=== PATIENT | female | born 1975 | race African-American/Black ===

== ENCOUNTER 2017-02-16 08:18 | Inpatient (IN) | payer BC ==
[~2017-02-16] VITALS: Ht 165.1 cm; Wt 103.9 kg
--- NOTE | ~2017-02-16 | EKG ---
[address] [place] [address] ELECTROCARDIOGRAM REPORT Name: JESUS OWENSQUITA HUDSON Room [facility]: [facility]..#: [id number] Admission: Attend Phys: Discharge: Date of : 79 Report #: [id number] THIS REPORT FOR: //name// [facility] ED Test Date: 2017-02-16 Test Time: 08:34:39 Pat Name: YVONNE OWENS Department: Room: Gender: F Hospital Cook: TOMMIE : 1975 Requested By: Coleman Quiroz Order Number: [id number] MD: John Zarate Measurements Intervals [place] Rate: 77 P: -9 LA: 170 QRS: -2 QRSD: 87 T: -9 QT: 357 QTc: 404 Interpretive Statements Sinus rhythm Borderline abnrm T, anterolateral leads Baseline wander in lead(s) II,III,aVF Electronically Signed On 02-16-2017 9:04:03 CDT by John Zarate [email or web address] <ELECTRONICALLY SIGNED> By: John Zarate MD 02/16/1704 0834 08 John Zarate MD /ANTHONY
--- NOTE | ~2017-02-16 | HC ---
[facility] [place] [address] CONSULTATION Name: YVONNE OWENS HUDSON Room #: 309-P [facility] IN M.R.#: [id number] Admission: 02/16/17 Attend Phys: Donal Saucedo DO Discharge: 02/19/17 Date of : 79 Report #: [id number] THIS REPORT FOR: //name// CC: Dorina Saucedo DATE OF SERVICE: 02/16/2017 HISTORY OF PRESENT ILLNESS: This is a 41-year-old female patient who was evaluated by me for paresthesias on the left upper and left lower extremity. She woke up with it on Thursday. She thought it was because she slept wrongly, but it never went away and she came to emergency room she was admitted. Paresthesias are not very severe. They came spontaneously. REVIEW OF SYSTEMS: Indicate that this patient is otherwise healthy. She does have a history of migraine headache. She gets some visual disturbances along with it. Otherwise, she is healthy. She had a tubal ligation in the past. Fourteen-point review of systems was otherwise unremarkable. PAST MEDICAL HISTORY: Negative for any symptoms suggestive of MS. FAMILY HISTORY: Negative for MS. SOCIAL HISTORY: She drinks alcohol occasionally and she does not smoke. PHYSICAL EXAMINATION: The patient's examinations indicate she is alert and responsive. Her speech, concentration, fund of knowledge and memory is at her baseline. Cranial nerve examination 212 was unremarkable. She does appear to have somewhat asymmetrical reflexes with somewhat higher on the left side, there may be slightly left-sided weakness. There is no cerebellar sign, meningeal sign or papilledema. She is a well-developed individual whose hearing and visual looks adequate. She has no thyroid mass. There is no carotid bruit. Cardiac examination shows unremarkable heart sounds and there is no murmur. There are no breath sounds, which are abnormal. Her pulses are palpable. Her blood pressure is 140/92, respirations 18, pulse is 72, and temperature is 98.6. LABORATORY DATA: Indicated a white count of 8.2. CT scan of the head does show some white matter changes. IMPRESSION: The main thing we need to exclude in this patient is the possibility of multiple sclerosis. I discussed the MRI with her and I discussed the plan with her. I discussed MRI with and without contrast or without contrast. She understands the long-term and short-term side effect of MRI with contrast. Her test was negative. She understands occasional, but irreversible dermatological side effect. She wants to proceed with it. More than 50 minutes of time was spent taking care of this patient and majority of [address] [address] CONSULTATION Name: YVONNE OWENS HUDSON Room #: 309-P [facility] IN M.R.#: [id number] Admission: 02/16/17 Attend Phys: Donal Saucedo DO Discharge: 02/19/17 Date of : 79 Report #: [id number] that time was spent counseling the patient and coordinating her care. We will look at the MRI when it is done and spinal tap. Thank you very much. <ELECTRONICALLY SIGNED> By: Rambo Teague MD 02/21/17 1226 1835 1222 Rambo Teague MD /nt
--- NOTE | ~2017-02-16 | 2DMMODE ---
[facility] [address] [employer] [address] 2 D/M-MODE ECHOCARDIOGRAM Name: YVONNE OWENS HUDSON Room #: 309-P ADM IN M.R.#: [id number] Admission: 02/16/17 Attend Phys: Donal Saucedo, Discharge: Date of : 79 Date of Service: 02/19/17 1238 Report #: [id number] THIS REPORT FOR: //name// APPROVED REPORT Study performed: 02/19/2017 11:41:16 EXAM: Comprehensive 2D, Doppler, and color-flow Echocardiogram Patient Location: Echo lab Room #: 309 Blood Pressure: 146/89 mmHg Other Information Study Quality: Good Indications Hypertension/HDD Echo Enhancing Agent Indication: Rule out Shunt Agent/Amount Used: Agitated Saline 6 cc 2D Dimensions RVDd: 23.10 mm LVEF(%): 71.11 (>50%) IVSd: 14.18 (7-11mm) LVOT Diam: 20.41 (18-24mm) LVDd: 40.00 mm PWd: 13.64 (7-11mm) Ascending Ao: 32.06 (22-36mm) LVDs: 24.03 (25-40mm) Aortic Root: 26.40 mm IVC: 13.00 mm Ocampo's LVEF: 71.11 % Volumes Left Atrial Volume (Systole) Single Plane 4CH: 59.62 mL Single Plane 2CH: 43.57 mL LA ESV Index: 25.00 mL/m2 Aortic Valve AoV Peak Jonny.: 2.00 m/s AO Peak Gr.: 15.98 mmHg LVOT Max P.53 mmHg LVOT Max V: 1.54 m/s LARRY Vmax: 2.53 cm2 [facility] [address] [place] [address] 2 D/M-MODE ECHOCARDIOGRAM Name: ROM[facility]VONNE [facility] Room #: 309[facility] IN .R.#: [id number] Admission: 02/16/17 Attend Phys: Donal Saucedo, Discharge: Date of : 79 Date of Service: 02/19/17 1238 Report #: [id number] Mitral Valve E/A Ratio: 1.2 MV Decel. Time: 182.75 ms MV E Max Jonny.: 0.97 m/s MV A Jonny.: 0.83 m/s MV PHT: 53.00 ms IVRT: 62.28 ms Pulmonary Valve PV Peak Jonny.: 1.16 m/s PV Peak Gr.: 5.41 mmHg Pulmonary Vein P Vein S: 0.68 m/s P Vein A: 0.09 m/s P Vein D: 0.51 m/s P Vein A Dur.: 62.3 msec P Vein S/D Ratio: 1.33 Tricuspid Valve RAP Estimate: 5.00 mmHg Left Ventricle The left ventricle is normal size. There is normal LV segmental wall motion. Mild concentric left ventricular hypertrophy. The left ventricular systolic function is normal. The left ventricular ejection fraction is within the normal range. LVEF is 65-70%. The left ventricular diastolic function is normal. Right Ventricle The right ventricle is normal size. The right ventricular systolic function is normal. Atria The left atrium size is normal. Injection of bubbles documented no interatrial shunt. The right atrium size is normal. Aortic Valve The aortic valve is normal in structure. No aortic regurgitation is present. There is no aortic valvular stenosis. Mitral Valve The mitral valve is normal in structure. There is no mitral valve regurgitation noted. No evidence of mitral valve stenosis. Tricuspid Valve The tricuspid valve is normal in structure. There is no tricuspid valve regurgitation noted. [address] [address] 2 D/M-MODE ECHOCARDIOGRAM Name: JESUS OWENSQUITA HUDSON Room #: 309-P [facility] IN ..#: [id number] Admission: 02/16/17 Attend Phys: Donal Saucedo, Discharge: Date of : 79 Date of Service: 02/19/17 1238 Report #: [id number] Pulmonic Valve The pulmonary valve is normal in structure. Trace pulmonic regurgitation. Great Vessels The aortic root is normal in size. IVC is normal in size and collapses >50% with inspiration. Pericardium There is no pericardial effusion. <Conclusion> The left ventricular systolic function is normal. There is normal LV segmental wall motion. LVEF 65-70%. The aortic valve is normal in structure without stenosis or insufficiency. The mitral valve is normal in structure, no mitral valve regurgitation noted. Pulmonary artery pressure could not be reliably ascertained. No shunting by contrast bubble injection. There is no pericardial effusion. <ELECTRONICALLY SIGNED> By: Zeferino Langston MD, FACC 02/19/17 1238 1238 1238 Zeferino Langston MD, FACC /INF
[~2017-02-16 08:18] MED LIST: APAP500; EXCEDRIN EXTRA1 EAC1 PO; HYDROCHLOROTH12.5 M1; IBUPROFEN 800800 M1 PO; NOHOMEMEDICATIONS; NORCO 5-325 TA1 EACH PO; PHENERGAN 25 MG25 M1 PO; PHENERGAN-CODE120 ML PO; PRAVASTATIN; PROVENTIL HFA6.7 G1 INH; RELPAX20 MG PO; TESSALON200 MG PO; TRAMADOL 50 MG50 MG PO; ULTRAM 50MG TAB50 MG PO; VICODIN 5-5001 EACH PO; ZOFRAN ODT4 MG PO; ZPAK PO
[2017-02-16 08:19] VITALS: BP 145/92
[2017-02-16] MEDS ORDERED: METFORMIN HCL500 MG PO (08:50)
[2017-02-16] MEDS ORDERED: PROZAC10 MG PO (08:51)
[2017-02-16 09:03] LABS: BASOPHILS 1.2 % (0.0-2.0); EOSINOPHILS 2.9 % (0.0-3.0); HEMATOCRIT 37.7 % (37.0-47.0); HEMOGLOBIN 12.4 gm/dL (12.0-15.0); LYMPHOCYTES 28.8 % (24.0-44.0); MANUAL DIFF NO; MCH 25.6 pg (26.0-34.0); MCV 77.7 fL (80.0-100.0); MONOCYTES 6.3 % (1.0-8.0); PLATELET COUNT 460 thou/uL (150-400); POLYS 60.8 % (36.0-66.0); RBC 4.85 mil/uL (4.20-5.00); RDW 16.7 % (10.5-14.5); WBC 8.2 thou/uL (4.0-11.0)
[2017-02-16 09:07] LABS: ANION GAP 9 mmol/L (7-16); BUN 11 mg/dL (7-18); CALCIUM 9.2 mg/dL (8.5-10.1); CHLORIDE 103 mmol/L (98-107); CO2 25 mmol/L (21-32); CREATININE 0.8 mg/dL (0.6-1.0); GLUCOSE 111 mg/dL (74-106); POTASSIUM 3.7 mmol/L (3.5-5.1); SODIUM 137 mmol/L (136-145)
[2017-02-16 09:19] LABS: NT-PRO BRAIN NAT PEPTIDE 16 pg/mL (<300); TROPONIN-I < 0.04 ng/mL (<0.04-0.07)
[2017-02-16 11:31] VITALS: BP 134/84
[2017-02-16 12:58] VITALS: BP 140/92
[2017-02-16 19:32] VITALS: BP 129/95
[2017-02-17 04:39] VITALS: BP 116/74
[2017-02-17 07:22] LABS: CHOLESTEROL 207 mg/dL (<200); HDL CHOLESTEROL 51 mg/dL (>40); LDL CHOLESTEROL 145 mg/dL (<100); TC:HDL 4.1 Ratio (Not establshd); TRIGLYCERIDE 59 mg/dL (<150); VLDL 12 mg/dL (<40)
[2017-02-17 07:45] VITALS: BP 126/59
[2017-02-17 13:49] LABS: HEMATOCRIT 36.3 % (37.0-47.0); HEMOGLOBIN 11.8 gm/dL (12.0-15.0); MCH 25.5 pg (26.0-34.0); MCHC 32.4 g/dL (28.0-37.0); MCV 78.7 fL (80.0-100.0); RBC 4.61 mil/uL (4.20-5.00); RDW 16.1 % (10.5-14.5); WBC 7.8 thou/uL (4.0-11.0)
[2017-02-17 14:06] LABS: APTT 26.5 Seconds (24.5-32.8); PROTIME 10.6 Seconds (9.3-11.4)
[2017-02-17 16:03] LABS: CSF CLARITY CLEAR; CSF COLOR COLORLESS; NUMBER OF TUBES 4; VOLUME 12.5 ml
[2017-02-17 16:10] LABS: CSF GLUCOSE 64 mg/dL (40-70); CSF PROTEIN 29 mg/dL (15-45)
[2017-02-17 16:20] VITALS: BP 125/71
[2017-02-17 16:20] LABS: CSF WBC 8 /mm3 (0-10); MANUAL DIFF NO
[2017-02-17 20:00] VITALS: BP 107/70
[2017-02-18 01:11] LABS: ANTITHROMBIN III 111 % (75-135); DIL. RUSSELL VIPER VENOM 36.3 sec (0.0-47.0)
[2017-02-18 04:00] VITALS: BP 125/69
[2017-02-18 08:38] VITALS: BP 122/85
[2017-02-18 16:18] VITALS: BP 156/84
[2017-02-18 19:17] VITALS: BP 146/89
[2017-02-19 04:53] VITALS: BP 132/83
[2017-02-19 05:11] LABS: HEMATOCRIT 34.1 % (37.0-47.0); HEMOGLOBIN 11.1 gm/dL (12.0-15.0); MCH 25.2 pg (26.0-34.0); MCHC 32.4 g/dL (28.0-37.0); MCV 77.8 fL (80.0-100.0); RBC 4.38 mil/uL (4.20-5.00); RDW 16.3 % (10.5-14.5)
[2017-02-19 05:38] LABS: ALBUMIN 2.9 g/dL (3.4-5.0); CALCIUM 8.9 mg/dL (8.5-10.1); CREATININE 0.7 mg/dL (0.6-1.0); TOTAL BILIRUBIN 0.2 mg/dL (<0.1-1.0); TOTAL PROTEIN 6.6 g/dL (6.4-8.2)
[2017-02-19 08:55] VITALS: BP 139/82
[2017-02-19 10:08] VITALS: BP 139/82
[2017-02-19 13:53] VITALS: BP 139/82
[2017-02-19 14:10] LABS: MYELIN BASIC PROTEIN 12.2 ng/mL (0.0-1.2)
[2017-02-19 15:07] LABS: CSF IgG 3.1 mg/dL (0.0-8.6)
[2017-02-23 11:07] LABS: LYME ANTIBODY SCREEN* 0.06 ISR (0.00-0.90)
== END 2017-02-19 15:14 | disposition home health service (06) | DRG 60 ==
LOC: ER 08:18 → EROBS 10:32 → 3N 10:32
PROVIDERS: Nurse Practitioner; Psychiatry & Neurology Neuromuscular Medicine
PROC: 009U3ZX Drainage of Spinal Canal, Percutaneous Approach, Diagnostic (ICD-10-PCS; principal; 2017-02-17)
PROC: B01B1ZZ Fluoroscopy of Spinal Cord using Low Osmolar Contrast (ICD-10-PCS; principal; 2017-02-17)
PROC: B54MZZA Ultrasonography of Right Upper Extremity Veins, Guidance (ICD-10-PCS; 2017-02-18)
PROC: 05HD33Z Insertion of Infusion Device into Right Cephalic Vein, Percutaneous Approach (ICD-10-PCS; 2017-02-18)
DX: G35 Multiple sclerosis (principal); G43.909 Migraine, unspecified, not intractable, without status migrainosus; I10 Essential (primary) hypertension; Z79.899 Other long term (current) drug therapy; Z82.3 Family history of stroke
CPT/HCPCS: 10096; 27001

== ENCOUNTER 2017-05-29 09:36 | Emergency (ER) | payer BC ==
[~2017-05-29] VITALS: Ht 165.1 cm; Wt 99.8 kg
[~2017-05-29 09:36] MED LIST changes: +METFORMIN HCL500 MG PO; +PROZAC10 MG PO
[2017-05-29 09:46] VITALS: BP 144/77
[2017-05-29] MEDS ORDERED: MEDROLDOSEPACK PO (10:28)
== END 2017-05-29 10:39 | disposition home or self-care (01) ==
LOC: ER 09:36
DX: G35 Multiple sclerosis (principal); I10 Essential (primary) hypertension; G43.909 Migraine, unspecified, not intractable, without status migrainosus; F10.99 Alcohol use, unspecified with unspecified alcohol-induced disorder

== ENCOUNTER 2021-04-22 20:24 | Emergency (ER) | payer OTHER ==
[~2021-04-22] VITALS: Ht 165.1 cm; Wt 92.1 kg
[~2021-04-22 20:24] MED LIST changes: +MEDROLDOSEPACK PO
[2021-04-22] MEDS ORDERED: SETLAKIN 0.151 EACH PO (21:31)
[2021-04-23 03:23] VITALS: BP 158/93
== END 2021-04-23 03:25 | disposition home or self-care (01) ==
LOC: ER 20:24
DX: G43.909 Migraine, unspecified, not intractable, without status migrainosus (principal); I10 Essential (primary) hypertension; Z98.51 Tubal ligation status; Z79.899 Other long term (current) drug therapy